=== PATIENT | male | born 1950 | race Caucasian/White ===

== ENCOUNTER 2022-07-04 02:28 | Emergency (ER) | payer MEDICARE, SELFPAY ==
[2022-07-04 02:33] VITALS: BP 152/88; PULSE 79; RESP 16; TEMP 36.8; O2SAT 96
[2022-07-04] MEDS: HYDROcodone/acetaminophen (*CRX) 5-325 MG TABLET 1 TAB PO (03:20)
[2022-07-04 03:31] LABS: Basophils Percent Auto 0.7 % (0.2-1.2); Eosinophils Absolute Auto 0.3 K/mm3 (0-0.3); Eosinophils Percent Auto 5.8 % (0-4.4); Hematocrit 41.4 % (42.0-52.0); Hemoglobin 14.3 g/dL (14.0-18.0); Immature Granulocyte Absolute 0.01 K/mm3 (0.00-0.031); Immature Granulocyte Percent A 0.2 % (0-0.5); Lymphocytes Absolute Auto 2.28 K/mm3 (0.9-3.2); Lymphocytes Percent Auto 38.9 % (18.3-44.2); Mean Corpuscular HGB Conc 34.5 g/dl (32-36); Mean Corpuscular Hemoglobin 32.9 pg (26-34); Mean Corpuscular Volume 95.4 fl (80-100); Mean Platelet Volume 9.2 fl (7.4-10.4); Monocytes Absolute Auto 0.4 K/mm3 (0.1-0.6); Monocytes Percent Auto 6.1 % (2.6-8.5); Neutrophils Absolute Auto 2.8 K/mm3 (1.3-6.7); Neutrophils Percent Auto 48.3 % (45.5-73.1); Platelet Count Result 195 k/mm3 (150-375); Red Blood Count 4.34 M/mm3 (4.6-6.20); Red Cell Distribution Width 13.3 % (11.5-14.5); White Blood Count 5.9 K/mm3 (4.5-10.0)
--- NOTE | 2022-07-04 03:32 | ED.GENADULT ---
HPI - General Adult General Chief complaint: Back Pain/Injury Stated complaint: dorinda lower extremity pain/back pain Time Seen by Provider: 07/04/22 02:40 History of Present Illness HPI narrative: Patient is a 72-year-old male who presents ER with bilateral foot pain. [place] is caused increased pain over the bottoms of his feet. Reports she goes hiking regularly. Did not have a fall. Reports he was hiking up and down hills. He is part of a hiking club. Patient is wearing a brace to the left ankle that he wears chronically. Patient also has edema to his right lower extremity. Patient reports edema is new today however he has had recurrent edema in that leg chronically. He reports multiple ultrasounds to rule out DVT and he has no history of DVT. He has no chest pain or shortness of breath. He is without any numbness or tingling. The majority of his pain is on the plantar aspect over the arches. He has tried ibuprofen without improvement. No numbness or tingling. Related Data Allergies Allergy/AdvReac Type Severity Reaction Status Date / Time No Known Allergies Allergy Unverified 07/01/19 15:58 Review of Systems Review of Systems: All systems reviewed & are unremarkable except as noted in HPI and below Constitutional: Constitutional: Denies chills, Denies fatigue and Denies fever(s) ENT: Denies nasal congestion and Denies sore throat Cardiovascular: Cardiovascular: Denies chest pain, Denies rapid heart rate and Denies radiating jaw, neck or arm pain Respiratory: Respiratory: Denies cough and Denies dyspnea Gastrointestinal: Gastrointestinal: Denies abdominal pain, Denies nausea and Denies vomiting Musculoskeletal: Musculoskeletal: Denies arthralgias and Denies joint swelling Comments: Bilateral foot pain with right lower extremity edema Neurologic: Denies focal weakness and Denies numbness PMFSH Past Medical History Medical History (Updated 07/04/22 @ 04:21 by Juan Antonio Wong MD) BPH (benign prostatic hyperplasia) Colostomy in place History of colon cancer Hypertension Surgical History Surgical History (Updated 07/04/22 @ 04:20 by Juan Antonio Wong MD) History of partial colectomy Family History Family History (System 07/01/19 @ 15:58 by Negrita Mosqueda) Other Family history of malignant neoplasm Hypertension Social History Social History (System 07/01/19 @ 15:58 by Negrita Mosqueda) Smoking status: Never smoker Alcohol intake: current Exam Narrative: GENERAL: Well-appearing, well-nourished, and in no acute distress. HEAD: Normocephalic, atraumatic. ENT: Mucous membranes moist. Beet juice stains to chin. CHEST: Clear to auscultation. No respiratory distress. HEART: Regular rate and rhythm. Normal peripheral pulses. ABDOMEN: Soft, nontender, nondistended, LLQ colostomy. EXTREMITIES: Normal range of motion. 2+ edema RLE, 1+ edema LLE. No reproducible tenderness in the feet. Normal DP/PT pulses bilaterally. Scabbing to right great toe plantar aspect medially. Ambulates without difficulty. SKIN: Warm, dry, no rash. NEURO: Alert and oriented x3. PSYCH: Normal mood and affect. Course Course Emergency Course: Patient with elevated D-dimer. Discussed treatment plan including Lovenox and nursing service director ultrasound and patient verbalized understanding. Patient received [place] for pain. Vital Signs Vital signs: Vital Signs Temperature 98.3 F 07/04/22 02:33 Pulse Rate 79 07/04/22 02:33 Respiratory Rate 16 07/04/22 02:33 Blood Pressure 152/88 H 07/04/22 02:33 Pulse Oximetry 96 07/04/22 02:33 Oxygen Delivery Room Air 07/04/22 02:33 Temperature 98.3 F 07/04/22 02:33 Pulse Rate 79 07/04/22 02:33 Respiratory Rate 16 07/04/22 02:33 Blood Pressure 152/88 H 07/04/22 02:33 Pulse Oximetry 96 07/04/22 02:33 Oxygen Delivery Room Air 07/04/22 02:33 Med
[2022-07-04 03:39] LABS: Anion Gap 12 mmol/L (8-16); Blood Urea Nitrogen 26 mg/dL (9-20); Carbon Dioxide 23 mmol/L (22-30); Chloride 106 mmol/L (98-107); Estimated CRCL calculation 65 ml/min; Estimated Glomerular Filt Rate > 60; Glucose 98 mg/dL (65-110); Potassium 3.8 mmol/L (3.4-5.0); Sodium 141 mmol/L (137-145)
[2022-07-04 04:04] LABS: D Dimer 1.06 ug/mL (<0.48)
[2022-07-04] MEDS: ENOXAPARIN 80 MG/0.8 ML SYRINGE SUB-Q (04:14)
== END 2022-07-04 04:24 | disposition home or self-care (01) ==
PROVIDERS: Emergency Provider Emergency Medicine; PCP Family Medicine Sports Medicine
DX: R60.0 Localized edema (principal); N40.0 Benign prostatic hyperplasia without lower urinary tract symptoms; Z85.038 Personal history of other malignant neoplasm of large intestine; Z93.3 Colostomy status; Z90.49 Acquired absence of other specified parts of digestive tract
CPT/HCPCS: 36415; 80048; 85025; 85380; 93970; 96372; 99283; A9270; J1650

== ENCOUNTER 2022-07-04 08:29 | Outpatient (CLI) | payer MEDICARE, SELFPAY ==
--- NOTE | ~2022-07-04 | US_ITS ---
EXAMINATION: US venous doppler [facility] DATE: 07/04/2022 09:31 INDICATION: Bilateral lower limb swelling TECHNIQUE: Quintero scale images without and with compression and Doppler images of the bilateral lower e xtremity veins were obtained. COMPARISON: None FINDINGS: The right common femoral vein, profunda femoral vein, femoral vein, popliteal vein, peroneal trunk, p osterior tibial veins, and greater saphenous vein are patent. The left common femoral vein, profunda femoral vein, femoral vein, popliteal vein, peroneal trunk, po sterior tibial veins, and greater saphenous vein are patent. IMPRESSION: 1. Patent bilateral lower extremity veins. No evidence of deep venous thrombosis. Reviewed, dictated and finalized at location B. CARE SPECIALIST IMPRESSION: 1. Patent bilateral lower extremity veins. No evidence of deep venous thrombosi s.
== END 2022-07-04 08:30 | disposition home or self-care (01) ==
PROVIDERS: PCP Family Medicine Sports Medicine; Visit Provider Family Medicine Sports Medicine
DX: R60.0 Localized edema (principal)
CPT/HCPCS: 93970